=== PATIENT | male | born 1990 | race Caucasian/White ===

== ENCOUNTER 2020-12-16 08:55 | Emergency (ER) | payer OTHER ==
[~2020-12-16] VITALS: Ht 175.3 cm; Wt 63.6 kg
[~2020-12-16 08:55] MED LIST: ALBU18HF2 IH; EPIN0.3A3 IM; OXYC20OR PO; PRED20TA PO
[2020-12-16 09:51] VITALS: BP 154/80
[2020-12-16] MEDS ORDERED: LIDOcaine 1% W/epiNEPHrine 1:100,000 20ml vial SQ ONE (11:40)
[2020-12-16] MEDS ORDERED: TETanus/Pertussis (Acell)/Diphther VAC/PF (Tdap-Adult) 0.5ml syringe IMVAC ONE (12:20)
--- NOTE | 2020-12-16 13:18 | NUR ---
PT. REFUSES HIS TETNUS SHOT EVEN AFTER I EXPLAINED WHAT HAPPENS WHEN SOME ONE DIES OF TETNUS....
== END 2020-12-16 13:20 | disposition home or self-care (01) ==
LOC: ER 08:56
DX: S51.812A Laceration without foreign body of left forearm, initial encounter (principal); G89.29 Other chronic pain; M54.9 Dorsalgia, unspecified; Z88.6 Allergy status to analgesic agent; Z91.018 Allergy to other foods; Z79.899 Other long term (current) drug therapy; X58.XXXA Exposure to other specified factors, initial encounter; Y93.89 Activity, other specified; Y92.89 Other specified places as the place of occurrence of the external cause; Y99.0 Civilian activity done for income or pay
CPT/HCPCS: 12002; 99282

== ENCOUNTER 2022-01-31 07:16 | Emergency (ER) | payer MEDICAID, OTHER ==
[~2022-01-31] VITALS: Ht 175.3 cm; Wt 63.6 kg
[2022-01-31 07:24] VITALS: BP 128/77
[2022-01-31] MEDS ORDERED: HYDR-3965 PO (09:25)
[2022-01-31] MEDS ORDERED: CLIN300C54 PO (09:25)
== END 2022-01-31 09:33 | disposition home or self-care (01) ==
LOC: ER 07:17
DX: K04.7 Periapical abscess without sinus (principal); G89.29 Other chronic pain; M54.50 Low back pain, unspecified; Z88.6 Allergy status to analgesic agent; Z91.018 Allergy to other foods
CPT/HCPCS: 99283

== ENCOUNTER 2022-04-13 07:02 | Emergency (ER) | payer MEDICAID ==
[~2022-04-13] VITALS: Ht 175.3 cm; Wt 68.2 kg
[2022-04-13 08:16] LABS: BASOPHILS % (AUTO) 0.5 % (0-1); EOSINOPHILS # (AUTO) 0.1 X10'3 (0-0.9); EOSINOPHILS % (AUTO) 0.9 % (0-6); HEMATOCRIT 46.3 % (42.0-52.0); HEMOGLOBIN 15.3 g/dl (14.0-17.9); LYMPHOCYTES # (AUTO) 1.2 X10'3 (1.1-4.8); LYMPHOCYTES % (AUTO) 12.8 % (21-51); MEAN CORPUSCULAR HEMOGLOBIN 29.2 PG (27.0-31.0); MEAN CORPUSCULAR HGB CONC 33.2 g/dL (33.0-36.5); MEAN CORPUSCULAR VOLUME 88.2 FL (78-98); MEAN PLATELET VOLUME 7.3 FL (7.4-10.4); MONOCYTES # (AUTO) 0.3 X10'3 (0-0.9); MONOCYTES % (AUTO) 3.9 % (2-12); NEUTROPHILS # (AUTO) 7.3 X10'3 (1.8-7.7); NEUTROPHILS % (AUTO) 81.9 % (42-75); PLATELET COUNT 286 X10'3 (140-440); RED BLOOD COUNT 5.25 X10'6 (4.70-6.10); RED CELL DISTRIBUTION WIDTH 13.9 % (11.5-14.5)
[2022-04-13 08:29] LABS: ALANINE AMINOTRANSFERASE 38 U/L (12-78); ALBUMIN 4.3 G/DL (3.4-5.0); ALBUMIN/GLOBULIN RATIO 1.2 (1.1-1.5); ALKALINE PHOSPHATASE 89 IU/L (46-116); ANION GAP 6 (8-16); ASPARTATE AMINO TRANSFERASE 27 U/L (10-37); BILIRUBIN,TOTAL 0.2 MG/DL (0.1-1.0); BLOOD UREA NITROGEN 18 MG/DL (7-18); CALCIUM 9.3 MG/DL (8.5-10.1); CHLORIDE 101 MMOL/L (99-107); CREATININE 0.82 MG/DL (0.60-1.10); GLUCOSE 110 MG/DL (70-104); LIPASE 186 U/L (73-393); POTASSIUM 4.3 MMOL/L (3.5-5.1); SODIUM 136 MMOL/L (135-145); TOTAL CARBON DIOXIDE 29.1 MMOL/L (24-32); TOTAL PROTEIN 7.8 G/DL (6.4-8.2); eGFR > 90 ML/MIN
[2022-04-13] MEDS ORDERED: normal saline 1000ML IV soln IVB ONE (09:10)
[2022-04-13] MEDS ORDERED: ondansetron/PF 4mg/2ml inj IV ONE (09:10)
[2022-04-13] MEDS ORDERED: ketorolac trometh. 30mg/ml inj. IV ONE (09:10)
[2022-04-13 09:28] LABS: CLARITY,URINE CLEAR (Clear); COLOR,URINE YELLOW (Yellow); GLUCOSE, URINE NEGATIVE (Neg); KETONES,URINE NEGATIVE (Neg); LEUKOCYTE ESTERASE ,URINE NEGATIVE (Neg); NITRITES, URINE NEGATIVE (Neg); OCCULT BLOOD,URINE NEGATIVE (Neg); PH,URINE 7.5 (4.8-8.0); PROTEIN,URINE NEGATIVE (Neg); UROBILINOGEN,URINE 0.2 E.U/dL (0.2-1.0)
[2022-04-13 09:31] LABS: UA COLLECTION TYPE CLN CATCH MIDSTREAM
--- NOTE | 2022-04-13 09:47 | NUR ---
I agree with the [employer] general assessment
[2022-04-13] MEDS ORDERED: NAPR-56 PO (11:18)
[2022-04-13 11:52] VITALS: BP 133/94
== END 2022-04-13 11:55 | disposition home or self-care (01) ==
LOC: ER 07:02
DX: R10.31 Right lower quadrant pain (principal); R39.15 Urgency of urination; G89.29 Other chronic pain; F41.9 Anxiety disorder, unspecified; Z98.890 Other specified postprocedural states; Z88.6 Allergy status to analgesic agent; Z88.8 Allergy status to other drugs, medicaments and biological substances; Z79.899 Other long term (current) drug therapy
CPT/HCPCS: 36415; 74176; 80053; 81003; 83690; 85025; 96361; 96374; 96375; 99284; J1885; J2405; J7030

== ENCOUNTER 2023-05-10 11:37 | Emergency (ER) | payer MEDICAID ==
[~2023-05-10] VITALS: Ht 175.3 cm; Wt 73.2 kg
[2023-05-10] MEDS ORDERED: DOXY-11 PO (12:50)
[2023-05-10] MEDS ORDERED: NAPR-56 PO (12:50)
[2023-05-10 12:55] VITALS: BP 140/92; PULSE 68; RESP 16; TEMP 98; O2SAT 99
== END 2023-05-10 13:00 | disposition home or self-care (01) ==
LOC: ER 11:38
DX: K04.7 Periapical abscess without sinus (principal); F41.9 Anxiety disorder, unspecified; G89.29 Other chronic pain; M54.9 Dorsalgia, unspecified; Z88.8 Allergy status to other drugs, medicaments and biological substances; Z88.6 Allergy status to analgesic agent; Z91.018 Allergy to other foods
CPT/HCPCS: 99283